=== PATIENT | male | born 1995 | race Caucasian/White ===

== ENCOUNTER 2016-12-31 18:30 | Emergency (ER) | payer MEDICAID, OTHER ==
[~2016-12-31] VITALS: Ht 165.1 cm; Wt 111.1 kg
[2016-12-31 18:52] VITALS: BP 139/83
--- NOTE | 2016-12-31 19:12 | NUR ---
AMBULATED TO BED 5
--- NOTE | 2016-12-31 19:20 | NUR ---
Patient being evaluated by DR. SWEENEY at bedside.
--- NOTE | 2016-12-31 19:24 | NUR ---
21Y/M PT. PRESENTS TO ED WITH C/O RECTAL BLEEDING X 4 DAYS. PT.MIRIAM B;EEDING ON AND OFF X 2 YEARS, TODAY PAIN WORSEN. NO MEDICAL HX. AAO X4, AMBULATORY WITH STEADY GAIT. RESPIRATIONS ROOM AIR, EVEN AND UNLABOREED. SKIN WARM AND DRY. C/O PAIN 8/10. VSS, ER MADE AWARE OF PT. STATUS.
[2016-12-31 19:56] LABS: BASOPHILS # (AUTO) 0.2 K/uL (0.00-0.22); BASOPHILS % (AUTO) 2.3 % (0.0-2.0); EOSINOPHILS # (AUTO) 0.5 K/uL (0-0.4); EOSINOPHILS % (AUTO) 4.7 % (0.0-4.0); HEMATOCRIT 47.4 % (36-52); HEMOGLOBIN 15.7 g/dL (12.0-18.0); LYMPHOCYTES # (AUTO) 2.6 K/uL (2.0-11.5); LYMPHOCYTES % (AUTO) 26.2 % (20.5-51.1); MEAN CORPUSCULAR HEMOGLOBIN 29 pg (27-31); MEAN CORPUSCULAR HGB CONC 33 g/dL (33-37); MEAN CORPUSCULAR VOLUME 86 fL (80-94); MONOCYTES # (AUTO) 0.5 K/uL (0.8-1.0); MONOCYTES % (AUTO) 5.5 % (1.7-9.3); NEUTROPHILS % (AUTO) 61.3 % (42.2-75.2); PLATELET COUNT (AUTO) 246 K/uL (140-450); RED BLOOD CELL COUNT(AUTO) 5.49 MIL/uL (4.20-6.10); RED CELL DISTRIBUTION WIDTH 12.5 % (11.6-13.7); WHITE BLOOD COUNT (AUTO) 9.8 K/uL (4.8-10.8)
--- NOTE | 2016-12-31 20:05 | NUR ---
Patient discharged with v/s stable. Written and verbal after care instructions given and explained. Patient alert, oriented and verbalized understanding of instructions. Ambulatory with steady gait. All questions addressed prior to discharge. ID band removed. Patient advised to follow up with PMD. Rx of TUCKS HEMORROIDDAL RECTAL SUPOSSITORY given. Patient educated on indication of medication including possible reaction and side effects. Opportunity to ask questions provided and answered.
[2016-12-31 20:07] VITALS: BP 125/75
== END 2016-12-31 20:05 | disposition home or self-care (01) ==
LOC: MED 18:30
DX: K62.5 Hemorrhage of anus and rectum (principal); K64.9 Unspecified hemorrhoids; J45.909 Unspecified asthma, uncomplicated; F17.200 Nicotine dependence, unspecified, uncomplicated
CPT/HCPCS: 36415; 85025; 99283

== ENCOUNTER 2017-09-10 10:42 | Emergency (ER) | payer SELFPAY ==
[~2017-09-10] VITALS: Ht 170.2 cm; Wt 115.2 kg
[2017-09-10 10:46] VITALS: BP 148/81
--- NOTE | 2017-09-10 10:50 | NUR ---
PT AMBULATED TO BED 3
--- NOTE | 2017-09-10 10:57 | NUR ---
PATIENT PRESENTS TO ED WITH C/O BILAT FLANK PAIN THAT STARTED LAST SATURDAY;PT STATES HE HAS BURNING SENSATION WHEN HE URINATES HAS A FEVER YESTERDAY;DENIES N/V/D/ URINARY FREQUENCY;; SKIN IS PINK/WARM/DRY; AAOX4 WITH EVEN AND STEADY GAIT; LUNGS CLEAR BL; HR EVEN AND REGULAR; PT DENIES ANY CP, SOB, OR COUGH AT THIS TIME; PATIENT STATES PAIN OF 8/10 AT THIS TIME;PATIENT POSITIONED FOR COMFORT; HOB ELEVATED; BEDRAILS UP X2; BED DOWN. ER MD MADE AWARE OF PT STATUS.
--- NOTE | 2017-09-10 11:12 | NUR ---
DR JACOBS EVALUATING PT AT BEDSIDE
[2017-09-10] MEDS ORDERED: NACL 0.9% 1,000 ML IV SCH (11:29)
[2017-09-10] MEDS ORDERED: KETOROLAC 30 MG/ML VIAL IVP ONE (11:30)
[2017-09-10] MEDS ORDERED: KETOROLAC 30 MG/ML VIAL ONE (11:36)
--- NOTE | 2017-09-10 11:39 | NUR ---
PT TAKEN TO CT
[2017-09-10 11:53] LABS: BASOPHILS % (AUTO) 0.5 % (0.0-2.0); EOSINOPHILS # (AUTO) 0.5 K/uL (0-0.4); HEMATOCRIT 44.7 % (36-52); HEMOGLOBIN 15.3 g/dL (12.0-18.0); LYMPHOCYTES # (AUTO) 1.7 K/uL (2.0-11.5); LYMPHOCYTES % (AUTO) 18.5 % (20.5-51.1); MEAN CORPUSCULAR HEMOGLOBIN 29 pg (27-31); MEAN CORPUSCULAR HGB CONC 34 g/dL (33-37); MEAN CORPUSCULAR VOLUME 84.5 fL (80-94); MONOCYTES # (AUTO) 0.6 K/uL (0.8-1.0); MONOCYTES % (AUTO) 6.7 % (1.7-9.3); NEUTROPHILS # (AUTO) 6.6 K/uL (1.8-7.7); NEUTROPHILS % (AUTO) 69.3 % (42.2-75.2); PLATELET COUNT (AUTO) 214 K/uL (140-450); RED BLOOD CELL COUNT(AUTO) 5.28 MIL/uL (4.20-6.10); RED CELL DISTRIBUTION WIDTH 13.6 % (11.6-13.7); WHITE BLOOD COUNT (AUTO) 9.4 K/uL (4.8-10.8)
[2017-09-10 12:07] LABS: ALBUMIN 3.7 g/dL (3.4-5.0); ANION GAP 9.9 (8-16); CREATININE 0.8 mg/dL (0.7-1.3); POTASSIUM 3.9 mmol/L (3.5-5.1); TOTAL BILIRUBIN 0.5 mg/dL (0.0-1.0)
--- NOTE | 2017-09-10 12:09 | NUR ---
LAB AT BEDSIDE.
[2017-09-10 12:22] LABS: APPEARANCE,URINE CLEAR (CLEAR); BILIRUBIN,URINE NEGATIVE (NEGATIVE); BLOOD, URINE NEGATIVE (NEGATIVE); COLOR,URINE YELLOW (YELLOW); LEUKOCYTE ESTERASE ,URINE NEGATIVE (NEGATIVE); NITRITE, URINE NEGATIVE (NEGATIVE); PH,URINE 6.5 (5.0-9.0); UGLUCOSE NEGATIVE (NEGATIVE)
[2017-09-10 13:05] LABS: RBC,URINE NONE SEEN /HPF (0-5); WBC,URINE NONE SEEN /HPF (0-5)
[2017-09-10 13:20] VITALS: BP 113/66
== END 2017-09-10 13:20 | disposition home or self-care (01) ==
LOC: MED 10:42
DX: M54.5 Low back pain (principal); R10.31 Right lower quadrant pain
CPT/HCPCS: 36415; 74176; 80053; 81001; 83605; 85025; 87040; 87086; 96361; 96374; 99285; J1885; J7030

== ENCOUNTER 2018-02-28 18:56 | Emergency (ER) | payer MEDICAID ==
[~2018-02-28] VITALS: Ht 167.6 cm; Wt 115.8 kg
[2018-02-28 19:02] VITALS: BP 129/75
--- NOTE | 2018-02-28 19:24 | NUR ---
PT AMBULATED TO BED 1
--- NOTE | 2018-02-28 19:24 | NUR ---
PATIENT PRESENTS TO ED WITH C/O FEELING LIKE GOING TO PASS OUT WHILE DRIVING. CP SHARP AND IN THE MIDDLE. C/O RANDALL PT DENIES N/V/D; SKIN IS PINK/WARM/DRY; AAOX4 WITH EVEN AND STEADY GAIT; LUNGS CLEAR BL; HR EVEN AND REGULAR; PATIENT STATES PAIN OF 7/10 AT THIS TIME; VSS; PATIENT POSITIONED FOR COMFORT; HOB ELEVATED; BEDRAILS UP X2; BED DOWN. ER MD MADE AWARE OF PT STATUS. NO MED HX
[2018-02-28 19:31] LABS: BASOPHILS # (AUTO) 0.1 K/uL (0.00-0.22); BASOPHILS % (AUTO) 0.5 % (0.0-2.0); EOSINOPHILS # (AUTO) 0.3 K/uL (0-0.4); EOSINOPHILS % (AUTO) 2.8 % (0.0-4.0); HEMATOCRIT 43.6 % (36-52); HEMOGLOBIN 14.9 g/dL (12.0-18.0); LYMPHOCYTES # (AUTO) 2.4 K/uL (2.0-11.5); LYMPHOCYTES % (AUTO) 19.8 % (20.5-51.1); MEAN CORPUSCULAR HEMOGLOBIN 29 pg (27-31); MEAN CORPUSCULAR HGB CONC 34 g/dL (33-37); MEAN CORPUSCULAR VOLUME 83.9 fL (80-94); MONOCYTES # (AUTO) 0.5 K/uL (0.8-1.0); MONOCYTES % (AUTO) 4.5 % (1.7-9.3); NEUTROPHILS # (AUTO) 8.9 K/uL (1.8-7.7); NEUTROPHILS % (AUTO) 72.4 % (42.2-75.2); PLATELET COUNT (AUTO) 248 K/uL (140-450); RED CELL DISTRIBUTION WIDTH 13.4 % (11.6-13.7); WHITE BLOOD COUNT (AUTO) 12.3 K/uL (4.8-10.8)
[2018-02-28 19:37] LABS: APPEARANCE,URINE CLEAR (CLEAR); COLOR,URINE YELLOW (YELLOW)
[2018-02-28 19:38] LABS: BILIRUBIN,URINE NEGATIVE (NEGATIVE); BLOOD, URINE NEGATIVE (NEGATIVE); LEUKOCYTE ESTERASE ,URINE NEGATIVE (NEGATIVE); NITRITE, URINE NEGATIVE (NEGATIVE); UGLUCOSE NEGATIVE (NEGATIVE)
[2018-02-28 19:42] LABS: BARBITURATE, URINE NEG. ng/ml (NEG <=200); BENZODIAZEPINE, URINE NEG. ng/mL (NEG <=200); CANNABINOID, URINE NEG. ng/mL (NEG <=50); COCAINE, URINE NEG. ng/mL (NEG <=300); OPIATE, URINE NEG. ng/mL (NEG <=2000); PHENCYCLIDINE SCREEN,URINE NEG. ng/mL (NEG <=25)
[2018-02-28 19:49] LABS: ANION GAP 10.1 (8-16); CARBON DIOXIDE 29.8 mmol/L (21-32); POTASSIUM 3.9 mmol/L (3.5-5.1)
[2018-02-28 19:55] LABS: ALBUMIN 4.2 g/dL (3.4-5.0); TOTAL BILIRUBIN 0.5 mg/dL (0.0-1.0)
[2018-02-28] MEDS ORDERED: NACL 0.9% 1,000 ML IV SCH (20:35)
--- NOTE | 2018-02-28 20:45 | NUR ---
DR MOYER AT BEDSIDE WITH PT
[2018-02-28 21:30] VITALS: BP 128/65
--- NOTE | 2018-02-28 21:30 | NUR ---
Patient discharged with v/s stable. Written and verbal after care instructions given and explained. Patient verbalized understanding. Ambulatory with steady gait. All questions addressed prior to discharge. Advised to follow up with PMD.
== END 2018-02-28 21:30 | disposition home or self-care (01) ==
LOC: MED 18:56
DX: R55 Syncope and collapse (principal); R42 Dizziness and giddiness; R53.1 Weakness; R20.0 Anesthesia of skin; F17.200 Nicotine dependence, unspecified, uncomplicated
CPT/HCPCS: 36415; 71045; 80053; 80305; 81003; 85025; 93005; 96360; 99285; J7030

== ENCOUNTER 2018-09-21 06:56 | Emergency (ER) | payer MEDICAID, OTHER ==
[~2018-09-21] VITALS: Ht 162.6 cm; Wt 113.4 kg
[2018-09-21 06:57] VITALS: BP 126/76
--- NOTE | 2018-09-21 06:57 | NUR ---
TO BED # 06 AMBULATORY
--- NOTE | 2018-09-21 07:03 | NUR ---
Coleen jones in [facility] - 09/21/18 at 0703 by TRICIA PT TAKEN TO BED 6
--- NOTE | 2018-09-21 07:03 | NUR ---
PT TAKEN TO BED 6
--- NOTE | 2018-09-21 07:15 | NUR ---
PATIENT PRESENTS TO ED WITH C/O CONSTANT EPIGASTRIC CHEST PAIN FOR APPROX 5 DAYS. PT STATES PAIN RADIATES TO BILATERAL ARMS. DENIES N/V, SOB, OR COUGH AT THIS TIME; PATIENT STATES PAIN OF 9/10 AT THIS TIME; VSS; PATIENT POSITIONED FOR COMFORT; HOB ELEVATED; BEDRAILS UP X1; BED DOWN.
[2018-09-21] MEDS ORDERED: KETOROLAC 30 MG/ML VIAL IM ONE (07:30)
--- NOTE | 2018-09-21 08:03 | NUR ---
X-RAY AT BEDSIDE.
--- NOTE | 2018-09-21 08:04 | NUR ---
XRAY AT BEDSIDE
[2018-09-21 08:56] VITALS: BP 121/87
== END 2018-09-21 08:56 | disposition home or self-care (01) ==
LOC: MED 06:56
DX: R07.89 Other chest pain (principal); R03.0 Elevated blood-pressure reading, without diagnosis of hypertension; R06.02 Shortness of breath
CPT/HCPCS: 71045; 93005; 96372; 99283; J1885; Q0092

== ENCOUNTER 2019-10-18 20:53 | Emergency (ER) | payer OTHER ==
[~2019-10-18] VITALS: Ht 167.6 cm; Wt 128.4 kg
[2019-10-18 20:59] VITALS: BP 141/80
--- NOTE | 2019-10-18 21:33 | NUR ---
PT TAKEN TO BED 6
--- NOTE | 2019-10-18 22:06 | NUR ---
Dr. Don examining patient.
--- NOTE | 2019-10-18 22:07 | NUR ---
24 YEAR OLD MALE COMPLAINS OF NONRADIATING CHEST PAIN X 8 HOURS. PER PT CHEST PAIN IS COMPRESSION FEELING. PT DENIES SOB, DENIES N/V/D. PT AOX4, BREATHING EVEN AND UNLABORED, SKIN WARM AND DRY. PT PLACED ON MONITOR, VS STABLE. ERMD AT BEDSIDE. BED IN LOWEST POSITION, LOCKED, BED RAIL UPX1. PMH - DENIES ALLERGIES - NKA
[2019-10-18 22:25] VITALS: BP 143/78
--- NOTE | 2019-10-18 22:25 | NUR ---
Patient discharged with v/s stable. Written and verbal after care instructions about musculoskeletal pain and chest pain (nonspecific) given and explained. Patient alert, oriented and verbalized understanding of instructions. Ambulatory with steady gait. All questions addressed prior to discharge. ID band removed. Patient advised to follow up with PMD. Rx of naproxen given. Patient educated on indication of medication including possible reaction and side effects. Opportunity to ask questions provided and answered.
[2019-10-19] MEDS ORDERED: NAPROXEN 500 MG TAB PO SCH (09:00)
== END 2019-10-18 22:25 | disposition home or self-care (01) ==
LOC: MED 20:53
DX: R07.89 Other chest pain (principal)
CPT/HCPCS: 93005; 99282; 99283

== ENCOUNTER 2021-09-07 20:55 | Emergency (ER) | payer OTHER ==
[~2021-09-07] VITALS: Ht 165.1 cm; Wt 124.7 kg
[2021-09-07 21:11] VITALS: BP 148/86
--- NOTE | 2021-09-07 21:17 | NUR ---
Patient ambulated to bed 1.
[2021-09-07] MEDS ORDERED: DICYCLOMINE HCL LIQUID 20 MG, ALUMINUM HYD/MAG/SIMETHICONE 30 ML, LIDOCAINE VISCOUS 2% ... PO ONE ×3 (21:55)
[2021-09-07] MEDS ORDERED: ALUMINUM HYD/MAG/SIMETHICONE 30 ML UDC ONE (22:07)
[2021-09-07] MEDS ORDERED: DICYCLOMINE HCL LIQUID 10 MG/5 ML UDC ONE (22:07)
[2021-09-07 22:14] LABS: BASOPHILS # (AUTO) 0.1 K/uL (0.00-0.22); BASOPHILS % (AUTO) 0.6 % (0.0-2.0); EOSINOPHILS # (AUTO) 0.4 K/uL (0-0.4); EOSINOPHILS % (AUTO) 4.5 % (0.0-4.0); HEMATOCRIT 42.4 % (36-52); HEMOGLOBIN 14.6 g/dL (12.0-18.0); LYMPHOCYTES # (AUTO) 2.7 K/uL (2.0-11.5); LYMPHOCYTES % (AUTO) 27.9 % (20.5-51.1); MEAN CORPUSCULAR HEMOGLOBIN 29 pg (27-31); MEAN CORPUSCULAR HGB CONC 35 g/dL (33-37); MEAN CORPUSCULAR VOLUME 84.1 fL (80-94); MONOCYTES # (AUTO) 0.7 K/uL (0.8-1.0); MONOCYTES % (AUTO) 6.8 % (1.7-9.3); NEUTROPHILS # (AUTO) 5.8 K/uL (1.8-7.7); NEUTROPHILS % (AUTO) 60.2 % (42.2-75.2); PLATELET COUNT (AUTO) 234 K/uL (140-450); RED BLOOD CELL COUNT(AUTO) 5.03 MIL/uL (4.20-6.10); RED CELL DISTRIBUTION WIDTH 13.7 % (11.6-13.7); WHITE BLOOD COUNT (AUTO) 9.6 K/uL (4.8-10.8)
--- NOTE | 2021-09-07 22:51 | NUR ---
ABD PAIN X 1 DAY. PT WOKE UP TODAY AND ATE BEANS AND MEAT. AFTER HE GOT A SHARP MIDDLE EPIGASTRIC PAIN. PT TOOK NO MEDS TO HELP AND DENIES N/V/D/F/CHEST PAIN. NO PMH, NO RX , NO ALLERGIES PT A&o X4 , AMBULATORY WITH EVEN AND STEADY GATE SIGNIFICANT OTHER AT BESIDE
[2021-09-07 23:08] LABS: ALBUMIN 3.8 g/dL (3.4-5.0); ANION GAP 9.1 (8-16); CARBON DIOXIDE 28.5 mmol/L (21-32); CREATININE 0.9 mg/dL (0.6-1.3); POTASSIUM 3.6 mmol/L (3.5-5.1); TOTAL BILIRUBIN 0.4 mg/dL (0.0-1.0)
[2021-09-07] MEDS ORDERED: KETOROLAC 60 MG/2 ML VIAL IM ONE (23:10)
[2021-09-07] MEDS ORDERED: IBUP-2213 PO (23:15)
[2021-09-07] MEDS ORDERED: OMEP40EC24 PO (23:15)
--- NOTE | 2021-09-08 | NUR ---
The patient's care was reviewed and supervised by Geneva Bowers RN.
--- NOTE | 2021-09-08 | NUR ---
Patient discharged with v/s stable. Written and verbal after care instructions given and explained. Patient alert, oriented and verbalized understanding of instructions. Ambulatory with steady gait. All questions addressed prior to discharge. ID band removed. Patient advised to follow up with PMD. Rx of PRILOSEC AND IBUPROFEN given.
[2021-09-08 00:16] VITALS: BP 116/70
== END 2021-09-08 | disposition home or self-care (01) ==
LOC: MED 20:55
DX: R10.13 Epigastric pain (principal); Z79.899 Other long term (current) drug therapy; Z79.1 Long term (current) use of non-steroidal anti-inflammatories (NSAID)
CPT/HCPCS: 36415; 80053; 81002; 82150; 83690; 85025; 96372; 99285; J1885

== ENCOUNTER 2022-12-27 08:58 | Emergency (ER) | payer OTHER ==
[~2022-12-27] VITALS: Ht 165.1 cm; Wt 113.4 kg
[~2022-12-27 08:58] MED LIST: IBUP-2213 PO; OMEP40EC24 PO
[2022-12-27 09:03] VITALS: BP 136/78; PULSE 64; RESP 18; TEMP 98.1; O2SAT 94
[2022-12-27] MEDS ORDERED: KETOROLAC 30 MG/ML VIAL IM ONE (09:50)
[2022-12-27] MEDS ORDERED: IBUP-2213 PO (09:50)
[2022-12-27 09:58] VITALS: O2SAT 94
[2022-12-27 10:53] VITALS: BP 136/78; PULSE 64; RESP 18; TEMP 98.6; O2SAT 94
== END 2022-12-27 10:53 | disposition home or self-care (01) ==
LOC: MED 08:58
DX: M25.561 Pain in right knee (principal); Z79.899 Other long term (current) drug therapy; Z79.1 Long term (current) use of non-steroidal anti-inflammatories (NSAID)
CPT/HCPCS: 73562; 96372; 99283; J1885

== ENCOUNTER 2023-01-05 03:33 | Emergency (ER) | payer OTHER ==
[~2023-01-05] VITALS: Ht 165.1 cm; Wt 113.4 kg
[2023-01-05 04:08] VITALS: BP 119/70; PULSE 69; RESP 16; TEMP 97.6; O2SAT 100
[2023-01-05] MEDS ORDERED: AMOX1TAB8 PO (04:32)
[2023-01-05] MEDS ORDERED: METH4TAB1 PO (04:32)
== END 2023-01-05 04:35 | disposition home or self-care (01) ==
LOC: MED 03:33
DX: J20.9 Acute bronchitis, unspecified (principal); Z79.899 Other long term (current) drug therapy; Z79.1 Long term (current) use of non-steroidal anti-inflammatories (NSAID); Z79.2 Long term (current) use of antibiotics
CPT/HCPCS: 99281; 99283

== ENCOUNTER 2023-04-19 05:31 | Emergency (ER) | payer OTHER ==
[~2023-04-19] VITALS: Ht 167.6 cm; Wt 132.4 kg
[~2023-04-19 05:31] MED LIST changes: +AMOX1TAB8 PO; +METH4TAB1 PO
[2023-04-19 05:38] VITALS: BP 134/77; PULSE 73; RESP 17; TEMP 97.8; O2SAT 97
[2023-04-19 06:44] LABS: FLU A ANTIGEN negative (NEGATIVE); FLU B ANTIGEN NEGATIVE (NEGATIVE)
[2023-04-19] MEDS ORDERED: BENZ200C4 PO (06:50)
[2023-04-19] MEDS ORDERED: DOXY-690 PO (06:50)
[2023-04-19] MEDS ORDERED: ALBU0.0912 IH (06:50)
[2023-04-19 07:01] VITALS: BP 111/62; PULSE 75; RESP 15; TEMP 97.8; O2SAT 97
== END 2023-04-19 07:01 | disposition home or self-care (01) ==
LOC: MED 05:31
DX: R05.9 Cough, unspecified (principal); Z20.822 Contact with and (suspected) exposure to COVID-19; Z79.899 Other long term (current) drug therapy; Z79.2 Long term (current) use of antibiotics; Z79.1 Long term (current) use of non-steroidal anti-inflammatories (NSAID)
CPT/HCPCS: 71045; 87426; 87804; 99284; Q0092

== ENCOUNTER 2023-05-06 12:57 | Emergency (ER) | payer OTHER ==
[~2023-05-06] VITALS: Ht 167.6 cm; Wt 90.7 kg
[~2023-05-06 12:57] MED LIST changes: +ALBU0.0912 IH; +BENZ200C4 PO; +DOXY-690 PO
[2023-05-06 13:26] VITALS: BP 123/75; PULSE 70; RESP 18; TEMP 98; O2SAT 98
[2023-05-06 13:30] VITALS: O2SAT 98
[2023-05-06 14:16] LABS: BASOPHILS # (AUTO) 0.1 K/uL (0.00-0.22); EOSINOPHILS # (AUTO) 0.5 K/uL (0-0.4); EOSINOPHILS % (AUTO) 6.1 % (0.0-4.0); HEMATOCRIT 44.2 % (36-52); LYMPHOCYTES # (AUTO) 2.5 K/uL (2.0-11.5); LYMPHOCYTES % (AUTO) 33.3 % (20.5-51.1); MEAN CORPUSCULAR HEMOGLOBIN 29 pg (27-31); MEAN CORPUSCULAR HGB CONC 34 g/dL (33-37); MEAN CORPUSCULAR VOLUME 85.7 fL (80-94); MONOCYTES # (AUTO) 0.5 K/uL (0.8-1.0); MONOCYTES % (AUTO) 6.1 % (1.7-9.3); NEUTROPHILS # (AUTO) 4.1 K/uL (1.8-7.7); NEUTROPHILS % (AUTO) 53.5 % (42.2-75.2); PLATELET COUNT (AUTO) 249 K/uL (140-450); RED BLOOD CELL COUNT(AUTO) 5.15 MIL/uL (4.20-6.10); RED CELL DISTRIBUTION WIDTH 13.4 % (11.6-13.7); WHITE BLOOD COUNT (AUTO) 7.6 K/uL (4.8-10.8)
[2023-05-06 14:18] LABS: APPEARANCE,URINE SL CLOUDY (CLEAR); BILIRUBIN,URINE NEGATIVE (NEGATIVE); BLOOD, URINE NEGATIVE (NEGATIVE); COLOR,URINE YELLOW (YELLOW); LEUKOCYTE ESTERASE ,URINE NEGATIVE (NEGATIVE); NITRITE, URINE NEGATIVE (NEGATIVE); PROTEIN,URINE NEGATIVE (NEGATIVE); UGLUCOSE NEGATIVE (NEGATIVE)
[2023-05-06 14:34] LABS: ANION GAP 8.5 (8-16); CALCIUM 8.8 mg/dL (8.5-10.1); CARBON DIOXIDE 30.6 mmol/L (21-32); CREATININE 0.8 mg/dL (0.6-1.3); POTASSIUM 4.1 mmol/L (3.5-5.1)
[2023-05-06 14:38] LABS: ALBUMIN 3.3 g/dL (3.4-5.0); BILIRUBIN,DIRECT 0.1 mg/dL (0.0-0.3); TOTAL BILIRUBIN 0.4 mg/dL (0.0-1.0)
[2023-05-06] MEDS ORDERED: KETOROLAC 30 MG/ML VIAL IM ONE (18:30)
[2023-05-06] MEDS ORDERED: FAMO-90 PO (18:37)
[2023-05-06 19:08] VITALS: PULSE 0
== END 2023-05-06 19:08 | disposition home or self-care (01) ==
LOC: MED 12:57
DX: R10.11 Right upper quadrant pain (principal); Z79.899 Other long term (current) drug therapy
CPT/HCPCS: 36415; 76705; 80048; 80076; 81003; 83690; 85025; 96372; 99285; J1885

== ENCOUNTER 2023-07-07 11:37 | Emergency (ER) | payer OTHER ==
[~2023-07-07] VITALS: Ht 165.1 cm; Wt 128.8 kg
[~2023-07-07 11:37] MED LIST changes: +FAMO-90 PO
[2023-07-07 11:43] VITALS: BP 142/77; PULSE 60; RESP 18; TEMP 97.7; O2SAT 97
[2023-07-07] MEDS ORDERED: PROM118S5 PO (13:52)
[2023-07-07] MEDS ORDERED: POLY10DR5 OP (13:52)
[2023-07-07 14:03] VITALS: BP 135/78; PULSE 88; RESP 16; TEMP 98; O2SAT 99
== END 2023-07-07 14:03 | disposition home or self-care (01) ==
LOC: MED 11:37
DX: H10.9 Unspecified conjunctivitis (principal); J06.9 Acute upper respiratory infection, unspecified; R03.0 Elevated blood-pressure reading, without diagnosis of hypertension; Z79.899 Other long term (current) drug therapy
CPT/HCPCS: 99283